=== PATIENT | female | born 1970 ===

== ENCOUNTER 2017-01-08 22:50 | Emergency (ER) | payer MEDICAID, OTHER ==
[2017-01-08 22:51] VITALS: BP 144/58; PULSE 88; RESP 16; TEMP 98; O2SAT 100
[2017-01-08 22:52] VITALS: BMI 32.3
--- NOTE | 2017-01-08 23:15 | ED PDOC ---
Lower Extremity Pain/Injury Time Seen by Provider: 01/08/17 22:55 Chief Complaint (Nursing): Lower Extremity Problem/Injury Chief Complaint (Provider): Knee Pain History Per: Patient Additional Complaint(s): Pt is a 46 yo female,PMH of DM and Hypothyroidism, presents to ED with c.o right knee pain after fall [employer]. Patient denies medicating for pain. no obvious deformity. Past Medical History Reviewed: Nursing Documentation, Vital Signs Vital Signs: Last Vital Signs Temp 98.0 F 01/08/17 22:51 Pulse 88 01/08/17 22:51 Resp 16 01/08/17 22:51 BP 144/58 L 01/08/17 22:51 Pulse Ox 100 01/08/17 22:51 - Medical History PMH: Anxiety, Depression, Diabetes, Hypothyroidism, Migraine Denies: Hepatitis, HIV, HTN, Kidney Stones, Chronic Kidney Disease, Seizures , Sexually Transmitted Disease - Surgical History Surgical History: Cholecystectomy, - Family History Family History: States: No Known Family Hx - Living Arrangements Living Arrangements: With Family - Social History Current smoker - smoking cessation education provided: No Alcohol: Social Drugs: Denies - Home Medications Home Medications: Ambulatory Orders Medication Instructions Recorded Atorvastatin [Lipitor] 20 mg PO DAILY #15 tab 06/11/16 Cholecalciferol [Vitamin D 1000 IU] 2,000 iu PO DAILY #15 06/11/16 DiphenhydrAMINE [Benadryl] 50 mg PO HS PRN #15 cap 06/11/16 Famotidine [Pepcid] 20 mg PO BID #30 tab 06/11/16 Ibuprofen [Motrin Tab] 600 mg PO BID #30 tab 06/11/16 Levothyroxine [Synthroid] 50 mcg PO DAILY@0630 #15 tab 06/11/16 Mirtazapine [Remeron] 7.5 mg PO HS #15 tab 06/11/16 Sertraline [Zoloft] 100 mg PO DAILY #15 tab 06/11/16 metFORMIN [glucOPHAGE] 500 mg PO BIDWM #30 tab 06/11/16 Ibuprofen [Motrin] 600 mg PO Q6 #20 tab 01/08/17 - Allergies Allergies/Adverse Reactions: Allergies Allergy/AdvReac Type Severity Reaction Status Date / Time No Known Allergies Allergy Verified 07/12/14 17:48 Review of Systems ROS Statement: Except As Marked, All Systems Reviewed And Found Negative Musculoskeletal: Positive for: Leg Pain Physical Exam - Reviewed Nursing Documentation Reviewed: Yes Vital Signs Reviewed: Yes - Physical Exam Appears: Positive for: Well, Non-toxic, No Acute Distress Head Exam: Positive for: ATRAUMATIC, NORMAL INSPECTION, NORMOCEPHALIC Skin: Positive for: Normal Color, Warm, DRY Eye Exam: Positive for: EOMI, Normal appearance, PERRL ENT: Positive for: Normal ENT Inspection Neck: Positive for: Normal, Painless ROM Cardiovascular/Chest: Positive for: Regular Rate, Rhythm Respiratory: Positive for: CNT, Normal Breath Sounds Gastrointestinal/Abdominal: Positive for: Normal Exam, Bowel Sounds, Soft Back: Positive for: Normal Inspection Extremity: Positive for: Normal ROM, Tenderness (over right patella). Negative for: Deformity, Swelling Neurologic/Psych: Positive for: Alert, Oriented - ECG O2 Sat by Pulse Oximetry: 100 Medical Decision Making Medical Decision Making: Medicated with Motrin PO XR: NAD, as read by [facility] therapy advised Pt placed in knee immobilizer Disposition - Clinical Impression Clinical Impression: Knee pain - Patient ED Disposition Is Patient to be Admitted: No - Disposition Referrals: Larry Gutierrez MD [Staff Provider] - Disposition: Routine/Home Disposition Time: 23:41 Condition: STABLE Prescriptions: Ibuprofen [Motrin] 600 mg PO Q6 #20 tab Instructions: Knee Pain (ED) Forms: [facility] (Korean) Print Language: JAPANESE - POA Present On Arrival: None
--- NOTE | 2017-01-09 08:59 | RAD ---
PROCEDURE: Right Knee Radiographs. HISTORY: pain s/p fall COMPARISON: None. FINDINGS: BONES: Three views of the right knee were performed. Mild degenerative changes are noted. No fracture is seen. No lytic process is noted. No significant joint effusion is seen. No loose body is noted. Minor lateral patellar tilt is seen. JOINTS: See above JOINT EFFUSION: No significant joint effusion OTHER FINDINGS: None. IMPRESSION: No fracture.
== END 2017-01-08 23:57 | disposition home or self-care (01) ==
LOC: H.ER 22:50
DX: M25.561 Pain in right knee (principal); E03.9 Hypothyroidism, unspecified; E11.9 Type 2 diabetes mellitus without complications; F32.9 Major depressive disorder, single episode, unspecified; F41.9 Anxiety disorder, unspecified; Z79.84 Long term (current) use of oral hypoglycemic drugs